=== PATIENT | male | born 1940 | race Caucasian/White ===

== ENCOUNTER 2018-03-24 06:30 | Outpatient (CLI) ==
--- NOTE | 2018-03-24 08:13 | STRESSECHO ---
Date of Test: 03/24/18 Reason for Exam: CHEST PAIN Ordering Physician: DR. MARINE SCHNEIDER Current Medications: CRESTOR Resting EKG: SINUS RHYTHM/ NO ACUTE CHANGES Target Heart Rate: 123/145 S-T SEGMENT STAGE MPH/GRADE HEART RATE BPM BLOOD PRESSURE MMHG RHYTHM +/- ELEVATION DEPRESSION SYMPTOMS,COMMENTS At Rest 80 148/78 SR X NONE 1 1.7/10% 116 140/68 SR X NONE 2 2.5/12% 3 3.4/14% 4 4.2/16% 5 5.0/18% Immediately after 126 SR X SHORT OF AIR Durations of Exercise:3:58 Maximum Heart Rate Reached: 126 BPM Reason for Termination: SHORT OF AIR 4 MINUTES POST EXERCISE: HR 90 BPM, BP 152/90 MMHG, SINUS RHYTHM, +/-, NO SYMPTOMS INTERPRETATION: 92% OXYGEN SATURATION ON ROOM AIR WITH EXERCISE METS 7.0 1. TEST POSITIVE FOR ISCHEMIC ST-T WAVE 2. MAY BE TIGHTNESS AT THE END OF EXERCISE 3. BORDERLINE HYPERTENSION AT REST AND WITH EXERCISE 4. NO ARRHYTHMIAS MILDLY HYPOKINETIC SEPTUM WITH EXERCISE/ NORMAL AT REST DR. SCHNEIDER WAS NOTIFIED 03/24/18 0825 MTDD
--- NOTE | 2018-03-24 08:18 | ECHOSTRESS ---
Date of Exam: 03/24/18 Ordering Physician: DR. MARINE SCHNEIDER Reason for Echo: CHEST PAIN M-Mode Normal Adult Results LV Dimensions Normal Adult Results AoV Opening excursions >1.6 LVEDD-base- 3.5-5.8 Ao root dimensions 2.0-3.7 LVESD-base- 3.1-4.6 L. Atrium dimensions 1.9-3.8 Post. Wall thickness 0.8-1.1 IV septum (thickness) 0.7-1.2 Post. Wall excursion 0.72-1.3 Septal motion Systolic motion R. Ventricular cavity 1.5-2.0 LVEF 60% Paradoxical septal wall motion 2-D: MILDLY HYPOKINETIC SEPTUM WITH EXERCISE/ NORMAL AT REST M-MODE: MV: AV: TV: PV: CHAMBER SIZE: WALL MOTION: MILDLY HYPOKINETIC SEPTUM WITH EXERCISE/ NORMAL AT REST PERICARDIUM: INTERPRETATION: 1. MILDLY HYPOKINETIC SEPTUM WITH EXERCISE/ NORMAL AT REST MTDD
--- NOTE | 2018-03-24 11:04 | STRESSECHO ---
Date of Test: 03/24/18 Ordering Physician: DR. MARINE SCHNEIDER Reason for Exam: CHEST PAIN Current Medications: CRESTOR Resting EKG: SINUS RHYTHM/ NO ACUTE CHANGES Target Heart Rate: 123/145 S-T SEGMENT STAGE MPH/GRADE HEART RATE BPM BLOOD PRESSURE MMHG RHYTHM +/- ELEVATION DEPRESSION SYMPTOMS,COMMENTS AT REST 80 148/78 SR X NONE 1 1.7/10% 116 140/68 SR X NONE 2 2.5/12% 3 3.4/14% 4 4.2/16% 5 5.0/18% Immediately After 126 SR X SHORT OF AIR Minutes Post Exercise [] [] [] [] [] [] DURATION OF EXERCISE:[] MAXIMUM HEART RATE REACHED: [] REASON FOR TERMINATION: [] 92% OXYGEN SATURATION ON ROOM AIR WITH EXERCISE METS 7.0 INTERPRETATION: 1. TEST POSITIVE FOR ISCHEMIC ST-T WAVE 2. MAY BE TIGHTNESS AT THE END OF EXERCISE 3. BORDERLINE HYPERTENSION AT REST AND WITH EXERCISE 4. NO ARRHYTHMIAS MILDLY HYPOKINETIC SEPTUM WIT EXERCISE/ LOYD AT REST MTDD
--- NOTE | 2018-03-24 11:23 | STRESSECHO ---
Date of Test: 03/24/18 Ordering Physician: DR. MARINE SCHNEIDER Reason for Exam: CHEST PAIN Current Medications: CRESTOR Resting EKG: SINUS RHYTHM/ NO ACUTE CHANGES Target Heart Rate: 123/145 S-T SEGMENT STAGE MPH/GRADE HEART RATE BPM BLOOD PRESSURE MMHG RHYTHM +/- ELEVATION DEPRESSION SYMPTOMS,COMMENTS AT REST 80 148/78 SR X NONE 1 1.7/10% 116 150/68 SR X NONE 2 2.5/12% 3 3.4/14% 4 4.2/16% 5 5.0/18% Immediately After 126 SR X SHORT OF AIR Minutes Post Exercise 4 90 140/68 SR NO SYMPTOMS DURATION OF EXERCISE: 3:18 MAXIMUM HEART RATE REACHED: 136 REASON FOR TERMINATION: SHORT OF AIR INTERPRETATION: 1. TEST POSITIVE 2. NDD FFAF 3. NDOAO 4. NOEAO MTDD
--- NOTE | 2018-03-24 13:05 | STRESSECHO ---
Date of Test: 03/24/18 Ordering Physician: DR. 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 Smoking History: QUIT 25 YEAR AGO Height: 67" Weight: 178 LBS Current Medications: CRESTOR Resting EKG: SINUS RHYTHM/ NO ACUTE CHANGES Target Heart Rate: 123/145 S-T SEGMENT STAGE MPH/GRADE HEART RATE BPM BLOOD PRESSURE MMHG RHYTHM +/- ELEVATION DEPRESSION SYMPTOMS,COMMENTS AT REST 80 148/78 SR X NO COMMENTS 1 1.7/10% 116 140/68 SR X NO SYMPTOMS 2 2.5/12% 3 3.4/14% 4 4.2/16% 5 5.0/18% Immediately After 126 SR X SHORT OF AIR Minutes Post Exercise 4:00 90 152/90 SR X NO SYMPTOMS Minutes Post Exercise DURATION OF EXERCISE: 3:58 MAXIMUM HEART RATE REACHED: 126 REASON FOR TERMINATION: SHORT OF AIR 92% OXYGEN SATURATION WITH EXERCISE ON ROOM AIR INTERPRETATION: 1. TEST POSITIVE FOR ISCHEMIC ST-T WAVE 2. MAY BE TIGHTNESS AT THE END OF EXERCISE 3. BORDERLINE HYPERTENSION AT REST AND WITH EXERCISE 4. NO ARRHYTHMIAS MILDLY HYPOKINETIC SEPTUM WITH EXERCISE/ NORMAL AT REST MTDD
== END 2018-03-24 06:31 | disposition home or self-care (01) ==
LOC: CAR 06:30
PROVIDERS: ATTEND Family Medicine
DX: R07.9 Chest pain, unspecified (principal)

== ENCOUNTER 2019-01-06 12:18 | Outpatient (RCR) ==
[2019-01-06 13:17] VITALS: TEMP 207.9; BMI 22.4
[2019-01-14 11:55] VITALS: BP 122/54
== END 2019-01-15 23:59 ==
LOC: CAR.REHAB 12:18
PROVIDERS: ATTEND Thoracic Surgery (Cardiothoracic Vascular Surgery)
DX: I25.119 Atherosclerotic heart disease of native coronary artery with unspecified angina pectoris (principal)
CPT/HCPCS: 93798

== ENCOUNTER 2019-01-16 06:37 | Outpatient (RCR) ==
[2019-02-13 07:55] VITALS: BP 118/58
== END 2019-02-15 23:59 ==
LOC: CAR.REHAB 06:37
PROVIDERS: ATTEND Thoracic Surgery (Cardiothoracic Vascular Surgery)
DX: I25.119 Atherosclerotic heart disease of native coronary artery with unspecified angina pectoris (principal)
CPT/HCPCS: 93798

== ENCOUNTER 2019-02-16 06:28 | Outpatient (RCR) ==
[2019-03-16 07:59] VITALS: BP 124/52
== END 2019-03-17 23:59 ==
LOC: CAR.REHAB 06:28
PROVIDERS: ATTEND Thoracic Surgery (Cardiothoracic Vascular Surgery)
DX: I25.119 Atherosclerotic heart disease of native coronary artery with unspecified angina pectoris (principal)
CPT/HCPCS: 93798

== ENCOUNTER 2019-03-18 06:40 | Outpatient (RCR) ==
[2019-04-15 08:06] VITALS: BP 114/50
== END 2019-04-15 13:06 | disposition home or self-care (01) ==
LOC: CAR.REHAB 06:40
PROVIDERS: ATTEND Thoracic Surgery (Cardiothoracic Vascular Surgery)
DX: I25.119 Atherosclerotic heart disease of native coronary artery with unspecified angina pectoris (principal)
CPT/HCPCS: 93798